=== PATIENT | female | born 1965 | race Caucasian/White ===

== ENCOUNTER → 2017-09-13 | Outpatient (CLI) | payer BC ==
[~2017-09-13] MED LIST: AMOX500 PO; NEOCOLOTSU OT
== END | disposition home or self-care (01) ==
LOC: LAB SHORT 13:40 → LAB 13:40
PROVIDERS: Obstetrics & Gynecology Gynecology
DX: Z12.4 Encounter for screening for malignant neoplasm of cervix (principal)
CPT/HCPCS: 87624; G0123

== ENCOUNTER → 2019-01-30 | Outpatient (CLI) | payer BC ==
[2019-02-03 13:07] LABS: HPV 16 Negative (Negative); HPV 18 Negative (Negative); HPV OTHER HR TYPES Negative (Negative)
== END | disposition home or self-care (01) ==
LOC: LAB 10:47 → LAB SHORT 10:47
PROVIDERS: Obstetrics & Gynecology Gynecology
DX: Z12.4 Encounter for screening for malignant neoplasm of cervix (principal)
CPT/HCPCS: 87624; G0123

== ENCOUNTER → 2019-11-17 | Outpatient (CLI) | payer BC ==
[2019-11-17 15:07] LABS: BASOPHILS ABSOLUTE AUTO 0.07 K/mm3 (0.00-0.23); BASOPHILS PERCENT AUTO 1 % (0-2); EOSINOPHILS ABSOLUTE AUTO 0.54 K/mm3 (0.00-0.68); EOSINOPHILS PERCENT AUTO 7 % (0-6); Hematocrit 46.8 % (33.0-51.0); Hemoglobin 15.2 g/dL (11.5-16.0); IMMATURE GRAN ABSOLUTE AUTO 0.04 K/mm3 (0.00-0.10); IMMATURE GRAN PERCENT AUTO 1 % (0-1); LYMPHOCYTES ABSOLUTE AUTO 2.69 K/mm3 (0.84-5.20); LYMPHOCYTES PERCENT AUTO 32 % (21-46); MONOCYTES ABSOLUTE AUTO 0.47 K/mm3 (0.16-1.47); MONOCYTES PERCENT AUTO 6 % (4-13); Mean Corpuscular HGB 30.3 pg (26.0-34.0); Mean Corpuscular HGB Conc 32.5 g/dL (31.5-36.5); Mean Corpuscular Volume 93 fL (80-100); Mean Platelet Volume 11.4 fL (9.1-12.4); NEUTROPHILS ABSOLUTE AUTO 4.55 K/mm3 (1.96-9.15); NEUTROPHILS PERCENT AUTO 54 % (41-73); Platelet Count 181 K/mm3 (150-400); RDW Standard Deviation 44.3 fL (35.1-46.3); Red Blood Cell Count 5.01 M/mm3 (3.80-5.20); White Blood Cell Count 8.36 K/mm3 (4.00-11.30)
[2019-11-17 15:23] LABS: Alanine Aminotransfer (ALT/SGP 54 U/L (12-78); Albumin, Blood 3.7 g/dL (3.4-5.0); Albumin/Globulin Ratio 0.9 (0.8-1.8); Alk Phos 145 U/L (50-136); Anion Gap 7 mmol/L (6-16); Aspartate Aminotrans (AST/SGOT 49 U/L (12-37); Bilirubin, Total 0.6 mg/dL (0.1-1.0); Blood Urea Nitrogen 13 mg/dL (8-24); Bun/Creatinine Ratio 13.6 (12.0-20.0); CHOL/HDL RATIO 4.7; CO2, Blood 27 mmol/L (21-32); Calcium, Blood 8.9 mg/dL (8.5-10.1); Chloride, Blood 105 mmol/L (98-108); Cholesterol 219 mg/dL (50-200); Creatinine, Blood 0.96 mg/dL (0.40-1.00); Globulin, Blood 4.1 g/dL (2.2-4.0); Glomerular Filtration Rate >60 (60-); Glucose, Blood 102 mg/dL (70-99); HDL Cholesterol 47 mg/dL (>39); Low Density Lipoprotein Chol 139 mg/dL (0-110); Potassium, Blood 4.2 mmol/L (3.5-5.5); Sodium, Blood 139 mmol/L (136-145); Total Protein, Blood 7.8 g/dL (6.4-8.2); Triglycerides 166 mg/dL (30-160); Very Low Density Lipoprot Chol 33 mg/dL (6-32)
== END | disposition home or self-care (01) ==
LOC: LAB 14:21 → LAB SHORT 14:21
PROVIDERS: Hospitalist
DX: I10 Essential (primary) hypertension (principal)
CPT/HCPCS: 80053; 80061; 85025

== ENCOUNTER → 2020-12-21 | Outpatient (CLI) | payer BC | LOC: LAB SHORT 10:47 → LAB 10:47 | DX: D48.5 Neoplasm of uncertain behavior of skin (principal); D17.1 Benign lipomatous neoplasm of skin and subcutaneous tissue of trunk; D22.5 Melanocytic nevi of trunk | CPT/HCPCS: 88304 ==

== ENCOUNTER 2024-10-15 06:05 | Day surgery (SDC) | payer BC ==
[~2024-10-15] VITALS: Ht 167.6 cm; Wt 98.3 kg
[2024-10-15] MEDS ORDERED: CeFAZolin Sodium 2,000 MG VIAL ONE (06:10)
[2024-10-15] MEDS ORDERED: ALLO300 PO (06:32)
[2024-10-15] MEDS ORDERED: SPIRONOLACTONE25 MG PO (06:33)
[2024-10-15] MEDS ORDERED: NEBIVOLOL HCL20 MG PO (06:34)
[2024-10-15] MEDS ORDERED: OMEP20ER PO (06:35)
[2024-10-15] MEDS ORDERED: SUPER B-50 COM1 EACH PO (06:38)
[2024-10-15] MEDS ORDERED: [UNRECOGNIZED DRUG - OTHER] SC (06:38)
[2024-10-15] MEDS ORDERED: FOLI1 PO (06:38)
[2024-10-15] MEDS ORDERED: Aspir 8181 MG PO (06:39)
[2024-10-15] MEDS ORDERED: THERA-D2000 UNIT PO (06:39)
[2024-10-15] MEDS ORDERED: FentaNYL Citrate 50 MCG/ML 2 ML Injection ONE (07:16)
[2024-10-15] MEDS ORDERED: Ondansetron HCl 2 MG / ML 2ML Vial ONE (07:32)
[2024-10-15] MEDS ORDERED: Dexamethasone Sod Phos 10 MG/ML 1ML VIAL ONE (07:32)
[2024-10-15] MEDS ORDERED: Ketorolac Tromethamine 30mg Vial ONE (07:33)
--- NOTE | 2024-10-15 08:10 | NUR ---
10/15/24 0810 Sunshine Howell FLUID DEFICIT OF LESS THAN 500ML, 'Oracio NOTIFIED
--- NOTE | 2024-10-15 08:28 | NUR ---
10/15/24 0828 SOCORRO JOSHI PLACED PT ON 2L O2 VIA N/C. O2 SAT WAS 92% ON RA WITH ORAL AIRWAY IN CURRENTLY 96%, AIRWAY OUT. PT BACK TO SLEEP. PT APPEARS COMFORTABLE.
--- NOTE | 2024-10-15 08:49 | NUR ---
10/15/24 0849 SOCORRO JOSHI PT UP TO BR WITH ASSISTANCE FROM [facility]. ADRIAN UNDERWARE IN PLACE WITH PAD. PT MODEST AND DOES NOT WANT ANYONE IN THE BATHROOM WITH HER. AGREES TO PULL CORD WHEN SHE IS READY TO GET UP. PT IS PLEASANT AND LAUGHING.
[2024-10-15 09:03] VITALS: BP 162/95
== END 2024-10-15 09:38 | disposition home or self-care (01) ==
LOC: ORSCSDS 06:05
PROVIDERS: Obstetrics & Gynecology
PROC: 0UDB8ZX Extraction of Endometrium, Via Natural or Artificial Opening Endoscopic, Diagnostic (ICD-10-PCS; principal; 2024-10-15 07:30)
DX: N95.0 Postmenopausal bleeding (principal); N85.00 Endometrial hyperplasia, unspecified; E66.9 Obesity, unspecified; Z68.35 Body mass index [BMI] 35.0-35.9, adult; Z79.899 Other long term (current) drug therapy; Z79.82 Long term (current) use of aspirin
CPT/HCPCS: 88305; J0690; J1100; J1885; J2405; J2704; J3010; J7120

== ENCOUNTER → 2024-11-20 | Outpatient (CLI) | payer BC ==
[~2024-11-20] MED LIST changes: +ALLO300 PO; +Aspir 8181 MG PO; +FOLI1 PO; +NEBIVOLOL HCL20 MG PO; +OMEP20ER PO; +SPIRONOLACTONE25 MG PO; +SUPER B-50 COM1 EACH PO; +THERA-D2000 UNIT PO; +[UNRECOGNIZED DRUG - OTHER] SC
[2024-11-20 20:46] LABS: Alanine Aminotransfer (ALT/SGP 32 U/L (12-78); Albumin, Blood 4.1 g/dL (3.4-5.0); Albumin/Globulin Ratio 1.1 (0.8-1.8); Anion Gap 7 mmol/L (3-11); Aspartate Aminotrans (AST/SGOT 23 U/L (12-37); Bilirubin, Total 0.7 mg/dL (0.1-1.0); Blood Urea Nitrogen 12 mg/dL (8-24); CHOL/HDL RATIO 4.5; CO2, Blood 29 mmol/L (21-32); Calcium, Blood 9.1 mg/dL (8.5-10.1); Chloride, Blood 104 mmol/L (98-108); Cholesterol 209 mg/dL (50-200); Creatinine, Blood 0.89 mg/dL (0.40-1.00); Globulin, Blood 3.6 g/dL (2.2-4.0); Glucose, Blood 103 mg/dL (70-99); HDL Cholesterol 46 mg/dL (>39); LDL/HDL RATIO 2.9; Low Density Lipoprotein Chol 132 mg/dL (0-110); Potassium, Blood 4.0 mmol/L (3.5-5.5); Sodium, Blood 136 mmol/L (136-145); Total Protein, Blood 7.7 g/dL (6.4-8.2); Triglycerides 156 mg/dL (30-160); Very Low Density Lipoprot Chol 31 mg/dL (6-32)
== END ==
LOC: LAB SHORT 13:25 → LAB 13:25
PROVIDERS: Hospitalist
DX: E78.2 Mixed hyperlipidemia (principal); I10 Essential (primary) hypertension
CPT/HCPCS: 80053; 80061